=== PATIENT | female | born 1960 | race Caucasian/White ===

== ENCOUNTER 2019-03-29 08:07 | Inpatient (IN) | payer MEDICAID ==
[2019-03-14 11:44] LABS: BASOPHILS % (AUTO) 0.8 % (0.0-2.0); EOSINOPHILS % (AUTO) 0.6 % (0.0-3.0); HEMATOCRIT 42.4 % (37.0-47.0); HEMOGLOBIN 13.6 G/DL (12.0-16.0); LYMPHOCYTES % (AUTO) 52.5 % (20.0-45.0); MEAN CORPUSCULAR VOLUME 90 FL (80-99); MONOCYTES % (AUTO) 3.3 % (1.0-10.0); NEUTROPHILS % (AUTO) 42.8 % (45.0-75.0); PLATELET COUNT 290 K/UL (150-450); RED BLOOD COUNT 4.74 M/UL (4.20-5.40); RED CELL DISTRIBUTION WIDTH 12.6 % (11.6-14.8); WHITE BLOOD COUNT 16.1 K/UL (4.8-10.8)
[2019-03-14 11:53] LABS: APPEARANCE,URINE CLEAR; BILIRUBIN, URINE NEGATIVE (NEGATIVE); COLOR,URINE PALE YELLOW; GLUCOSE, URINE (UA) NEGATIVE (NEGATIVE); KETONES,URINE NEGATIVE (NEGATIVE); LEUKOCYTE ESTERASE ,URINE NEGATIVE (NEGATIVE); NITRITE,URINE NEGATIVE (NEGATIVE); PH,URINE 7 (4.5-8.0); PROTEIN,URINE NEGATIVE (NEGATIVE); UROBILINOGEN,URINE NORMAL MG/DL (0.0-1.0)
[2019-03-14 11:55] LABS: ANION GAP 5 mmol/L (5-15); BLOOD UREA NITROGEN 14 mg/dL (7-18); CALCIUM 9.2 MG/DL (8.5-10.1); CARBON DIOXIDE 29 MMOL/L (21-32); CHLORIDE 105 MMOL/L (98-107); CREATININE 0.9 MG/DL (0.55-1.30); POTASSIUM 3.7 MMOL/L (3.5-5.1); SODIUM 139 MMOL/L (136-145)
[2019-03-14 11:59] LABS: INR 0.9 (0.9-1.1)
--- NOTE | 2019-03-14 13:50 | Diagnostic Imaging Report ---
Indication: Dyspnea Comparison: None 2 views of the chest obtained. Findings: Cardiomediastinal silhouette and pulmonary vascularity are within normal limits for age. The diaphragmatic contour is smooth and costophrenic angles are sharp. No pleural effusions are identified. The bones are unremarkable. Impression: No acute disease
--- NOTE | 2019-03-22 15:30 | Pre-op HX & Phy Repo 2 SIG ---
DATE OF ADMISSION: 03/29/2019 DATE OF PLANNED SURGERY: Scheduled for surgery, 03/29/2019. 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 The patient presented for mammography and ultrasound imaging because she felt her left breast was heavy and getting larger. Imaging studies revealed in the left breast two lesions at 11 o'clock, 3 cm from the nipple was a 15 mm nodule. Core biopsy revealed invasive ductal carcinoma, estrogen and progesterone receptor positive, HER2 negative, Ki-67 low. It also showed ductal carcinoma in situ. In addition, in the upper inner quadrant of the left breast with a vague spiculated asymmetry with increased fiber stroma with biopsy revealed increased fibrous stroma and one focus of ductal hyperplasia. The patient is scheduled to undergo left breast partial mastectomy with preoperative needle localization and left axillary lymph node biopsy. PAST MEDICAL HISTORY: Operations, breast implants in 1984 removed in 2008 and surgery for fibroids. MEDICATIONS: [place], Lamictal, and Zyprexa. ALLERGIES: None. PHYSICAL EXAMINATION: GENERAL: A well-developed and well-nourished, 5 feet 4 inches, 175 pounds. HEENT: Within normal limits. LUNGS: Clear. HEART: Regular rhythm. BREASTS: Large and ptotic. There is no palpable mass. No primary or secondary sign of tumor. No axillary or supraclavicular lymphadenopathy. IMPRESSION: Invasive ductal carcinoma and ductal carcinoma in situ, left breast. PLAN: Left breast partial mastectomy with preoperative needle localization and left axillary lymph node biopsy. I have had a full discussion with the patient regarding the surgery, indications, alternatives, options, and risks including bleeding, infection, scarring, distortion of breast or nipple, need for additional surgery or treatments based on final pathology, etc. All questions have been answered. She understands and agrees to proceed. Oscar Barroso M.D. DR: SOSA JOB#: [id number] CC:
--- NOTE | 2019-03-23 16:58 | Cardiology Report ---
APPROVED REPORT EKG Measurement Heart [id number] Normal sinus rhythm Rightward axis T wave abnormality, consider anterior ischemia Abnormal ECG
[~2019-03-29] VITALS: Ht 161.3 cm; Wt 81.2 kg
[2019-03-29] VITALS (17 sets, daily range): BP systolic 88–120; BP diastolic 45–70
[2019-03-29] MEDS ORDERED: LITHIUM CARBON150 MG ORAL (08:54)
[2019-03-29] MEDS ORDERED: ZYPREXA2.5 MG ORAL (08:54)
[2019-03-29] MEDS ORDERED: LAMICTAL100 MG ORAL (08:54)
[2019-03-29] MEDS ORDERED: Lidocaine 1% 10mg/ml/Epi 0.005mg/ml 30ml vial INJ ONE (10:17)
[2019-03-29] MEDS ORDERED: Bacitracin 50000 Units Vial ONE (10:18)
[2019-03-29] MEDS ORDERED: Bupivacaine 0.5% Inj 30 ml vial INJ ONE (10:18)
[2019-03-29] MEDS ORDERED: Bupivacaine w/Epi 0.5% 30ml Vial INJ ONE (10:18)
[2019-03-29] MEDS ORDERED: Zemuron 50mg/5ml Inj IV ONE (10:52)
[2019-03-29] MEDS ORDERED: Succinylcholine 20mg/ml 10ml vial ONE (10:52)
[2019-03-29] MEDS ORDERED: Propofol 200mg/20ml IV ONE (10:53)
[2019-03-29] MEDS ORDERED: Lidocaine 1% MPF 10mg/ml 5ml ONE (10:53)
[2019-03-29] MEDS ORDERED: Midazolam 2mg/2ml Inj ONE (10:55)
[2019-03-29] MEDS ORDERED: fentaNYL 100 mcg/2 mL IV ONE (10:55)
[2019-03-29] MEDS ORDERED: NS Irrig 1000ml IRRIG ONE ×2 (11:26→11:46)
[2019-03-29] MEDS ORDERED: Neostigmine 1mg/ml 10ml Inj ONE (11:30)
[2019-03-29] MEDS ORDERED: Sterile Water Irrig 1000ml IRRIG ONE (11:30)
[2019-03-29] MEDS ORDERED: LR 1000ml ONE (11:30)
--- NOTE | 2019-03-29 12:10 | Anethesia Preoperative Eval ---
Anesthesia Pre-op PMH/ROS General Date of Evaluation: Mar 29, 2019 Time of Evaluation: 11:20 Anesthesiologist: Johnny ASA Score: ASA 2 Mallampati Score Class I : Soft palate, uvula, fauces, pillars visible Class II: Soft palate, uvula, fauces visible Class III: Soft palate, base of uvula visible Class IV: Only hard plate visible Mallampati Classification: Class II Surgeon: Chio Diagnosis: L breast CA Surgical Procedure: L breast partial mastectomy Anesthesia History: none Family History: no anesthesia problems Allergies: Coded Allergies: No Known Allergies (Unverified , 03/28/19) Medications: see eMAR Patient NPO?: Yes NPO Date: Mar 28, 2019 NPO Time: 2129 Past Medical History Cardiovascular: Reports: HTN - borderline; Denies: CAD, CT, valve dz, arrhythmia, other Pulmonary: Denies: asthma, COPD, SHAKEEL, other Gastrointestinal/Genitourinary: Reports: GERD; Denies: CRI, ESRD, other Neurologic/Psychiatric: Reports: depression/anxiety; Denies: dementia, CVA, TIA, other Endocrine: Denies: DM, hypothyroidism, steroids, other HEENT: Denies: cataract (L), cataract (R), glaucoma, TUSCARORA (L), TUSCARORA (R), other Hematology/Immune: Denies: anemia, DVT, bleeding disorder, other Musculoskeletal/Integumentary: Denies: OA, RA, DJD, DDD, edema, other Other: other - overweight PMH Narrative: as above PSxH Narrative: Beasts implants in and out Anesthesia Pre-op Phys. Exam Physician Exam Last Vital Signs Date Time Temp Pulse Resp B/P (MAP) Pulse Ox O2 Delivery O2 Flow Rate FiO2 03/29/19 08:56 97.3 59 20 113/70 (84) 96 03/29/19 08:54 Room Air Constitutional: NAD Neurologic: CN 2-12 intact Cardiovascular: RRR, no M/R/G Respiratory: CTA Gastrointestinal: S/NT/ND Airway Exam Mallampati Score: Class II MO: limited Neck: flexible ROM: full Teeth: intact Dentures: no upper, no lower Anesthesia Pre-op A/P Labs see chart Studies Pre-op Studies: EKG - NSR Risk Assessment & Plan Assessment: ASA 2 Plan: GA with ETT Status Change Before Surgery: No Pre-Antibiotics Drug: Ancef 1gr Given Within 1 Hr of Incision: Yes Time Given: 11:50 Edis Turner MD Mar 29, 2019 12:10
[2019-03-29] MEDS ORDERED: LR 1000ml 1,000 ML IVLG SCH (12:11)
[2019-03-29] MEDS ORDERED: Meperidine 50mg/ml Inj(FOR RIGORS ONLY) IV PRN (12:15)
[2019-03-29] MEDS ORDERED: DiphenhydrAMINE 50mg/ml Inj IVP PRN (12:15)
[2019-03-29] MEDS ORDERED: Ketorolac 30mg Inj ONE (12:15)
[2019-03-29] MEDS ORDERED: Sodium Chloride 10ml vial INJ ONE (12:15)
[2019-03-29] MEDS ORDERED: Ketorolac 30mg Inj IV PRN (12:15)
[2019-03-29] MEDS ORDERED: Acetaminophen (Non formulary) 100 ML IV ONE (12:15)
[2019-03-29] MEDS ORDERED: Glycopyrrolate 0.2mg/ml 1ml Vial ONE (12:15)
[2019-03-29] MEDS ORDERED: Morphine Sulfate 10mg/ml Inj ONE (12:17)
--- NOTE | 2019-03-29 13:25 | Brief Operative Note ---
Immediate Post Operative Note Operative Note Pre-op Diagnosis: invasive ductal carcinoma and ductal carcinoma in situ left breast Procedure: left breast partial mastectomy with pre-op needle localization and left axillary lymph node biopsy Post-op Diagnosis: same Post-op Diagnosis: same as pre-op Findings: consistent w/pre-op dx studies Surgeon: phuong Anesthesiologist: paige Anesthesia: general Specimen: yes - left breast tissue and left axillary lymph node Complications: none Condition: stable Fluids: see anesthesia record Estimated Blood Loss: minimal Drains: QUE Implant(s) used?: No Oscar Barroso MD Mar 29, 2019 13:25
--- NOTE | 2019-03-29 13:29 | Immediate Post-Op Evaluation ---
Immediate Post-Op Evalulation Immediate Post-Op Evalulation Procedure: L breast partial mastectomy with axillary l/n dissection Date of Evaluation: Mar 29, 2019 Time of Evaluation: 13:28 IV Fluids: 1000 Blood Products: none Estimated Blood Loss: <50 Urinary Output: none Blood Pressure Systolic: 122 Blood Pressure Diastolic: 72 Pulse Rate: 76 Respiratory Rate: 18 O2 Sat by Pulse Oximetry: 99 Temperature (Fahrenheit): 97.5 Pain Score (1-10): 1 Nausea: No Vomiting: No Complications NONE Patient Status: reacts, patent, extubated, none Hydration Status: adequate Edis Turner MD Mar 29, 2019 13:29
--- NOTE | 2019-03-29 14:50 | NUR ---
NURSE NOTES: Patient arrived on unit via hospital bed. Stable. AAOx4. Able to verbalize needs. Patient oriented to room, call light, and unit. Surgical bra in place, surgical dressing clean, dry, and intact. QUE drain compressed as ordered, no output at this time. Patient encouraged to use call light for assistance, verbalized understanding. Patient is in bed in locked and lowest position with call light within reach. Will continue to monitor.
[2019-03-29] MEDS: D5 1/2NS w/KCl 20mEq 1,000 ML IV SCH (16:14)
--- NOTE | 2019-03-29 18:00 | Operative Note - Dictated ---
DATE OF OPERATION: 03/29/2019 SURGEON: Oscar Barroso M.D. REFLESHER: None. ANESTHESIOLOGIST: Edis Turner M.D. TYPE OF ANESTHESIA: General. PREOPERATIVE DIAGNOSES: Invasive ductal carcinoma and ductal carcinoma in situ, left breast. POSTOPERATIVE DIAGNOSES: Invasive ductal carcinoma and ductal carcinoma in situ, left breast. OPERATION PERFORMED: Left breast partial mastectomy with preoperative needle localization and left axillary lymph node biopsy. DESCRIPTION OF PROCEDURE: The patient was taken to the operating room and under general anesthesia with sequential compression device stockings in place, she was prepped and draped in the usual fashion. A curvilinear incision was made in the upper inner quadrant of the left breast achieving hemostasis with cautery and dissecting the flaps circumferentially. The localization wire was brought into the field. A wide excision of quadrantectomy was performed because the tissue felt abnormal in addition to the area marked by the wire and there was known ductal carcinoma in situ or DCIS. The specimen was oriented with suture marking anterior, superior, and medial and specimen radiograph confirmed the presence of the lesion. The pectoralis fascia had been taken as the deep margin. The field was copiously irrigated and hemostasis secured with cautery. Pathology reported the margins to be clear except close posteriorly and that was cleared with the pectoralis fascia as there was no invasion through it. After ascertaining the hemostasis was secured, the breast incision was closed with interrupted 3-0 Vicryl deep dermal subcutaneous sutures followed by continuous 5-0 Monocryl subcuticular suture. The left axillary incision was made achieving hemostasis with cautery and incising the clavipectoral fascia. Markedly enlarged lymph node was readily apparent and resected in its entirety with the Thunderbeat electrosurgical device. Pathology inspection revealed absence of breast cancer cells and the lymph gland was soft. There were no other palpable lymph glands. Through a separate stab incision inferolaterally, a 10 flat Kishore-Bond was placed into the axilla and sutured to the skin with a 3-0 nylon skin suture. After ascertaining the hemostasis was secure, the clavipectoral fascia was closed with interrupted 3-0 Vicryl. The subcutaneous tissue was closed with interrupted 3-0 Vicryl and the skin closed with continuous 5-0 Monocryl subcuticular suture. Tincture of benzoin and half-inch Steri-Strips were applied to both incisions followed by dry sterile dressings. Final sponge and needle counts were correct. The patient tolerated the procedure well and left the operating room in good condition. Oscar Barroso M.D. DR: RENATO JOB#: [id number] CC:
--- NOTE | 2019-03-29 18:55 | NUR ---
NURSE NOTES: QUE output<5cc. QUE bulb continuously compressed.
--- NOTE | 2019-03-29 19:30 | NUR ---
NURSE NOTES: Received report from EZEQUIEL Kellogg. Patient AAO x 4 and breathing unlabored without signs of distress, discomfort, or sob. Denies pain at this time. IV site noted on right hand running fluid as ordered. QUE drain noted intact and compressed. Surgical bra in place with surgical dressing intact. Call light placed within reach. Bed placed at the lowest with brakes and side rails up for safety. SCDs on bilateral lower extremities. Will continue to monitor and provide care as ordered.
--- NOTE | 2019-03-29 19:30 | NUR ---
HAND-OFF: Report given to Sonia NIEVES. Patient is stable.
[2019-03-29] MEDS: ceFAZolin sod 1 GM in D5W 55 ML IV SCH (20:33)
[2019-03-29] MEDS: OLANZapine 2.5mg tab ORAL SCH (21:26)
--- NOTE | 2019-03-29 22:38 | NUR ---
NURSE NOTES: Reached Dr. Barroso to notify that patient has 291 ml urinary retention observed after voiding 100 ml at 10pm and that patient is experiencing cough and sore throat. Dr. Barroso confirmed okay to give patient more time to void on her own and to give cepacol 1 lozg q 2hrs PRN for cough and sore throat. Will carry out the order as prescribed and continue to monitor.
[2019-03-30] VITALS: BP 110/57
[2019-03-30] MEDS: D5 1/2NS w/KCl 20mEq 1,000 ML IV SCH (02:00)
[2019-03-30] MEDS: ceFAZolin sod 1 GM in D5W 55 ML IV SCH (03:29)
[2019-03-30 04:00] VITALS: BP 107/58
[2019-03-30] MEDS: HYDROmorphone 1mg/ml Carpuject SUBQ PRN (05:14)
--- NOTE | 2019-03-30 07:26 | 48 Hour Post Anesthesia Eval ---
Post Anesthesia Evaluation Procedure: L breast partial mastectomy with axillary l/n dissection Date of Evaluation: Mar 30, 2019 Airway: patent - mild sore throat Nausea: No Vomiting: No Hydration Status: adequate Cardiopulmonary Status: at baseline Mental Status/LOC: patient returned to baseline Post-Anesthesia Complications: 0 Follow-up care needed: N/A - further care as per primary team Ophelia Maya MD Mar 30, 2019 07:26
--- NOTE | 2019-03-30 07:38 | NUR ---
HAND-OFF: Report given to EZEQUIEL Doan.
[2019-03-30 08:00] VITALS: BP 118/66
--- NOTE | 2019-03-30 08:06 | NUR ---
NURSE NOTES: Pt awake denies pain at this time. Call light is in reach
--- NOTE | 2019-03-30 08:30 | NUR ---
NURSE NOTES: Dr Barroso is here seen pt removed bandages and assessed site. QUE drain as minimal output sanguinous in type. Encouraged to move arm, and to keep on bra. Pt informed not to get area wet for one week , and to avoid deodorant. IV fluids have been discontinued. PER .
--- NOTE | 2019-03-30 08:47 | General Progress Note ---
Progress Note Progress Note AVSS Had emesis overnight, and required Dilaudid SQ x 2. This am feels better but unsteady Left breast and axilla incisions clean and dry with intact steristrips QUE drain 12cc Imp. Stable but recent emesis/unsteady Plan;continue in-patient status mobilize with staff [place] instead of dilaudid d/c IV when eats okay Oscar Barroso MD Mar 30, 2019 08:47
[2019-03-30] MEDS ORDERED: Lithium Carbonate 150mg cap ORAL SCH ×2 (09:00)
[2019-03-30] MEDS ORDERED: OLANZapine 2.5mg tab ORAL SCH (09:00)
[2019-03-30] MEDS: HYDROcodone/Acetamin 5/325 tab ORAL PRN ×2 (11:36→20:07)
[2019-03-30 12:00] VITALS: BP 126/65
--- NOTE | 2019-03-30 12:26 | NUR ---
CASE MANAGEMENT: INITIAL REVIEW 58 YO F PRESENTED TO HOSPITAL FROM HOME CC: INVASIVE DUCTAL CARCINOMA IN SITU OF THE LEFT BREAST PMHx: UTERINE FIBROIDS. BREAST CA. SI:LEFT BREAST CARCINOMA. T 97.3 HR 59 RR 20 B/P 113/70 SATS 96% ON RA WBC 16.1 IS: OR MEDS PATIENT ADMITTED TO MED/SURG 03/30/2019 DCP: PATIENT TO BE DISCHARGED TO HOME MEDICALLY CLEARED. PLAN OF CARE: PREOPERATIVE DIAGNOSES: Invasive ductal carcinoma and ductal carcinoma in situ, left breast. POSTOPERATIVE DIAGNOSES: Invasive ductal carcinoma and ductal carcinoma in situ, left breast. OPERATION PERFORMED: Left breast partial mastectomy with preoperative needle localization and left axillary lymph node biopsy. Addendum: 03/31/19 at 0904 by Quiana Chaney CM INTERQUAL MET
--- NOTE | 2019-03-30 12:51 | NUR ---
NURSE NOTES: pt is ambulatory, able to verbalize known needs. Pain medication provided for pain to axillary area. Pt is comfortable pain medication effective. Has not had any s/s nausea or vomiting. Tolerating fluids and food well
--- NOTE | 2019-03-30 15:40 | NUR ---
NURSE NOTES: Cepacol provide for complaints of sore throat. Made aware that possible cause s/p surgery it is common to have throat irritation. Provided with pt teaching in regards to QUE drain. Verbalized understanding. Will have pt demonstrate before shift ends for next output collection
[2019-03-30 16:00] VITALS: BP 118/74
--- NOTE | 2019-03-30 17:01 | NUR ---
NURSE NOTES: Dr Barroso here for afternoon , rounds informed of pt current condition, no complaints of n/v pain medication x 1. Current plan will be followed
--- NOTE | 2019-03-30 19:00 | NUR ---
NURSE NOTES: Pt refused to demonstrate pt teaching in regards to QUE. " I will do it later, there is nothing in it to empty" Will endorse to oncoming nurse. Pt informed that discharge is tomorrow
--- NOTE | 2019-03-30 19:30 | NUR ---
NURSE NOTES: Patient awake in bed, alert and oriented x4, with complaint of pain 7/10, will medicate as ordered. Instructed the use of call light. Bed in lowest position and lock engaged. Call light and needs in reach. Will continue to monitor.
--- NOTE | 2019-03-30 19:45 | NUR ---
NURSE NOTES: Pt lying in bed w/bed in lowest position and call light within reach. Pt A&Ox4, VSS, and c/o moderate pain; will administer pain medication. IV site intact/asymptomatic & H/L'd; QUE drain intact and to bulb suction; and surgical bra/dressing C/D/I. Encouraged pt to use I/S 10x/hr while awake and confirmed that pt knows how to empty QUE drain. Will continue to monitor.
--- NOTE | 2019-03-30 19:59 | NUR ---
HAND-OFF: Report given to Rasheed Knox RN.
[2019-03-30 20:00] VITALS: BP 112/68
[2019-03-30] MEDS: OLANZapine 2.5mg tab ORAL SCH (22:09)
[2019-03-31] VITALS: BP 114/62
[2019-03-31 04:00] VITALS: BP 130/69
[2019-03-31] MEDS: HYDROcodone/Acetamin 5/325 tab ORAL PRN (04:44)
[2019-03-31] MEDS: HYDROmorphone 1mg/ml Carpuject SUBQ PRN (05:53)
--- NOTE | 2019-03-31 06:00 | NUR ---
NURSE NOTES: Pt received [place] 5/325 mg for moderate pain @ 0445 and c/o 10/10 generalized pain a little before 0545 stating it's the worst pain she's experienced; attempted to calm pt down as she was very anxious and reminded her pain medication will take effect soon. Will continue to monitor.
--- NOTE | 2019-03-31 07:21 | General Progress Note ---
Progress Note Progress Note AVSS Pain controlled with [place]. No further emesis Incisions clean and dry. QUE serosang small amount Imp Stable Plan: discharge Rx [place] #30 f/u office 04/06/19 instructions/limitations/supplies discussed/provided Oscar Barroso MD Mar 31, 2019 07:21
--- NOTE | 2019-03-31 07:32 | NUR ---
NURSE NOTES: Dr Barroso here seen pt, gave okay for discharge. Gave instructions to provide gauze, and tape, pt will be discharge with QUE drain follow up appointment made for next Thursday
--- NOTE | 2019-03-31 07:42 | NUR ---
HAND-OFF: Report given to EZEQUIEL Smallwood.
[2019-03-31 08:00] VITALS: BP 115/54
--- NOTE | 2019-03-31 08:22 | NUR ---
CASE MANAGEMENT: REVIEW 03/31/2019 SI:LEFT BREAST CARCINOMA. T 98.8 HR 75 RR 18 B/P 130/69 SATS 97% ON 2L/NC NO LABS TODAY IS: LAMICTAL PO QHS LITHIUM PO QHS ZYPREXA PO QHS MED/SURG STATUS DCP: PATIENT TO BE DISCHARGED TO HOME MEDICALLY CLEARED.
--- NOTE | 2019-03-31 09:48 | NUR ---
NURSE NOTES: Pt provided with supplies to take home 4x4 gauze paper tape, 10 cc syringe to measure output from QUE drain. Recording sheet provided dated up to the day of follow up appointment on next Thursday. Informed on of not getting left axillary area wet , and to avoid use of deodorant. Instructions to wash hair in sink . Verbalized understanding. Prescription given for pain medication by Dr Barroso. [employer] offered to fax prescription across the street with refusal. Per pt mother will be escorting her home by Ok
--- NOTE | 2019-03-31 11:25 | NUR ---
NURSE NOTES: Pt discharged in stable condition. Provided with information on care for QUE drain, breast cancer , and frequently asked questions after surgery. IV removed , name tag removed. Given medications from pharmacy. Reinformed about pt teaching, in regards to surgical site, care, and QUE recording list. Denies pain at this time. Pt has on belongings , phone in possession, has yellow purse and backpack. Dr Barroso provided pt with prescription, pt stated she will fill prescription at [facility].
--- NOTE | 2019-03-31 20:23 | Discharge Summary ---
Discharge Summary Discharge Summary _ DATE OF ADMISSION: 03/29/2019 DATE OF DISCHARGE: 03/31/2019 DISCHARGED BY: Dr. 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 The patient presented for mammography and ultrasound imaging because she felt her left breast was heavy and getting larger. Imaging studies revealed in the left breast two lesions at 11 o'clock, 3 cm from the nipple was a 15 mm nodule. Core biopsy revealed invasive ductal carcinoma, estrogen and progesterone receptor positive, HER2 negative, Ki-67 low. It also showed ductal carcinoma in situ. In addition, in the upper inner quadrant of the left breast with a vague spiculated asymmetry with increased fiber stroma with biopsy revealed increased fibrous stroma and one focus of ductal hyperplasia. The patient is scheduled to undergo left breast partial mastectomy with preoperative needle localization and left axillary lymph node biopsy. BRIEF HOSPITAL COURSE: The patient was taken to the operating room. She underwent left breast partial mastectomy with preoperative needle localization and left axillary lymph node biopsy. The patient tolerated the procedure well and left the operating room in good condition. First day postop, patient had emesis. She required Dilaudid injections. Dilaudid was then changed to [place]. Left breast and axilla incisions were clean and dry with intact Steri-Strips. QUE drain 12 cc. She was encouraged mobilization. The following day, pain was controlled with [place]. There was no further emesis. Incision was clean and dry. QUE drainage was serosanguineous and had small amount. She was cleared for discharge to follow-up in the office on 04/06. PREOPERATIVE DIAGNOSES: Invasive ductal carcinoma and ductal carcinoma in situ, left breast. POSTOPERATIVE DIAGNOSES: Invasive ductal carcinoma and ductal carcinoma in situ, left breast. OPERATION PERFORMED: Left breast partial mastectomy with preoperative needle localization and left axillary lymph node biopsy. DISPOSITION: Patient was discharged home. DISCHARGE MEDICATIONS: She was given prescription for [place]. DISCHARGE INSTRUCTIONS: Follow-up 04/06/2019. I have been assigned to complete a discharge summary on this account, I was not involved with the patient's management.--STEVO Bahena Jacqueline Robles NP Mar 31, 2019 20:23
== END 2019-03-31 11:20 | disposition home or self-care (01) | DRG 363 ==
LOC: SUR 08:07 → 3E 14:18
PROC: 07B60ZX Excision of Left Axillary Lymphatic, Open Approach, Diagnostic (ICD-10-PCS; 2019-03-29)
PROC: 0HBU0ZZ Excision of Left Breast, Open Approach (ICD-10-PCS; principal; 2019-03-29 11:30)
DX: C50.212 Malignant neoplasm of upper-inner quadrant of left female breast (principal); Z17.0 Estrogen receptor positive status [ER+]
CPT/HCPCS: 36415; 71046; 80048; 81003; 85025; 85610; 85730; 87081; 93005; 94003; 94150; J2250; J2405; J2710